=== PATIENT | female | born 1945 | race Caucasian/White ===

== ENCOUNTER → 2020-10-26 | Outpatient (CLI) | payer MEDICARE, OTHER ==
[2020-10-26 10:04] LABS: HEMATOCRIT 43.6 % (36.0-47.0); HEMOGLOBIN 13.6 g/dl (12.0-15.5); MEAN CORPUSCULAR HGB CONC 31.2 g/dl (32.0-36.5); PLATELET COUNT, AUTOMATED 313 10^3/uL (150-450); RED BLOOD COUNT 4.69 10^6/uL (4.00-5.40); WHITE BLOOD COUNT 6.2 10^3/uL (4.0-10.0)
[2020-10-26 10:17] LABS: INR 0.92; PROTHROMBIN TIME 12.5 SECONDS (12.5-14.3)
[2020-10-26 10:23] LABS: BLOOD UREA NITROGEN 26 MG/DL (7-18); CALCIUM LEVEL 9.5 MG/DL (8.8-10.2); CARBON DIOXIDE LEVEL 32 MEQ/L (21-32); CHLORIDE LEVEL 105 MEQ/L (98-107); GLOMERULAR FILTRATION RATE > 60.0 (>39); GLUCOSE, FASTING 103 MG/DL (70-100); POTASSIUM SERUM 4.7 MEQ/L (3.5-5.1); SODIUM LEVEL 140 MEQ/L (136-145)
== END ==
LOC: M LAB 09:25
DX: I73.9 Peripheral vascular disease, unspecified (principal)

== ENCOUNTER → 2020-10-26 | Outpatient (CLI) | payer MEDICARE, OTHER | LOC: M LABSMTC 09:00 | DX: Z20.822 Contact with and (suspected) exposure to COVID-19 (principal) ==

== ENCOUNTER → 2020-11-23 | Outpatient (CLI) | payer MEDICARE, OTHER ==
[2020-11-23 09:53] LABS: BASO # 0.1 10^3/uL (0.0-0.2); BASO % 0.7 % (0.0-1.0); EOS # 0.1 10^3/uL (0.0-0.5); EOS % 0.8 % (0.0-3.0); HEMATOCRIT 38.2 % (36.0-47.0); LYMPH # 2.2 10^3/uL (1.5-5.0); LYMPH % 24.2 % (24.0-44.0); MEAN CORPUSCULAR HEMOGLOBIN 29.7 pg (27.0-33.0); MEAN CORPUSCULAR HGB CONC 31.4 g/dl (32.0-36.5); MEAN CORPUSCULAR VOLUME 94.6 fl (80.0-96.0); MONO # 0.8 10^3/uL (0.0-0.8); MONO % 8.7 % (2.0-8.0); NEUTROPHILS # 5.9 10^3/uL (1.5-8.5); NEUTROPHILS % 65.3 % (36.0-66.0); PLATELET COUNT, AUTOMATED 432 10^3/uL (150-450); RED BLOOD COUNT 4.04 10^6/uL (4.00-5.40); WHITE BLOOD COUNT 9.1 10^3/uL (4.0-10.0)
[2020-11-23 10:03] LABS: INR 1.01; PROTHROMBIN TIME 13.5 SECONDS (12.5-14.3)
[2020-11-23 10:24] LABS: BLOOD UREA NITROGEN 23 MG/DL (7-18); CALCIUM LEVEL 9.6 MG/DL (8.8-10.2); CARBON DIOXIDE LEVEL 28 MEQ/L (21-32); CHLORIDE LEVEL 105 MEQ/L (98-107); CREATININE FOR GFR 0.82 MG/DL (0.55-1.30); GLOMERULAR FILTRATION RATE > 60.0 (>39); GLUCOSE, FASTING 101 MG/DL (70-100); POTASSIUM SERUM 4.7 MEQ/L (3.5-5.1); SODIUM LEVEL 138 MEQ/L (136-145)
== END ==
LOC: M LAB 08:57
PROVIDERS: ATTEND Surgery Vascular Surgery
DX: I73.9 Peripheral vascular disease, unspecified (principal); Z20.828 Contact with and (suspected) exposure to other viral communicable diseases; Z11.59 Encounter for screening for other viral diseases
CPT/HCPCS: 36415; 80048; 85025; 85610; U0003

== ENCOUNTER → 2020-11-23 | Outpatient (CLI) | payer MEDICARE, OTHER | LOC: M LABSMTC 08:04 | PROVIDERS: ATTEND Surgery Vascular Surgery | DX: Z20.828 Contact with and (suspected) exposure to other viral communicable diseases (principal); Z11.59 Encounter for screening for other viral diseases ==

== ENCOUNTER → 2020-12-21 | Outpatient (CLI) | payer MEDICARE, OTHER | LOC: M LABSMTC 08:13 | PROVIDERS: ATTEND Surgery Vascular Surgery | DX: Z01.812 Encounter for preprocedural laboratory examination (principal); Z20.822 Contact with and (suspected) exposure to COVID-19 ==

== ENCOUNTER → 2020-12-21 | Outpatient (CLI) | payer MEDICARE, OTHER ==
[2020-12-21 09:33] LABS: BASO # 0.1 10^3/uL (0.0-0.2); BASO % 0.9 % (0.0-1.0); EOS # 0.2 10^3/uL (0.0-0.5); EOS % 1.9 % (0.0-3.0); HEMATOCRIT 42.1 % (36.0-47.0); HEMOGLOBIN 13.1 g/dl (12.0-15.5); LYMPH # 2.7 10^3/uL (1.5-5.0); LYMPH % 29.4 % (24.0-44.0); MEAN CORPUSCULAR HEMOGLOBIN 29.4 pg (27.0-33.0); MEAN CORPUSCULAR HGB CONC 31.1 g/dl (32.0-36.5); MEAN CORPUSCULAR VOLUME 94.6 fl (80.0-96.0); MONO # 0.6 10^3/uL (0.0-0.8); MONO % 6.2 % (2.0-8.0); NEUTROPHILS # 5.6 10^3/uL (1.5-8.5); NEUTROPHILS % 61.3 % (36.0-66.0); PLATELET COUNT, AUTOMATED 429 10^3/uL (150-450); RED BLOOD COUNT 4.45 10^6/uL (4.00-5.40); WHITE BLOOD COUNT 9.1 10^3/uL (4.0-10.0)
[2020-12-21 09:53] LABS: INR 0.95; PROTHROMBIN TIME 12.9 SECONDS (12.5-14.3)
[2020-12-21 09:57] LABS: CALCIUM LEVEL 9.3 MG/DL (8.8-10.2); CREATININE FOR GFR 1.07 MG/DL (0.55-1.30); GLOMERULAR FILTRATION RATE 53.5 (>39); POTASSIUM SERUM 5.2 MEQ/L (3.5-5.1)
== END ==
LOC: M LAB 08:26
PROVIDERS: ATTEND Surgery Vascular Surgery
DX: Z01.812 Encounter for preprocedural laboratory examination (principal); I73.9 Peripheral vascular disease, unspecified; Z20.822 Contact with and (suspected) exposure to COVID-19
CPT/HCPCS: 36415; 80048; 85025; 85610; U0003

== ENCOUNTER 2021-01-03 12:36 | Emergency (ER) | payer MEDICARE, OTHER ==
[2021-01-03] MEDS ORDERED: LOSA25TA14 PO (12:52)
[2021-01-03] MEDS ORDERED: OMEP40CA97 PO (12:52)
[2021-01-03] MEDS ORDERED: FEXO60TA71 PO (12:52)
[2021-01-03] MEDS ORDERED: CELE1CAP4 PO (12:52)
[2021-01-03] MEDS ORDERED: PLAV1TAB2 PO (12:52)
[2021-01-03] MEDS ORDERED: URSO1TAB8 PO (12:52)
[2021-01-03] MEDS ORDERED: FOLTTAB9 PO (12:52)
[2021-01-03] MEDS ORDERED: CYCL-707 PO (12:52)
[2021-01-03] MEDS ORDERED: CYMB1CAP4 PO (12:52)
[2021-01-03] MEDS ORDERED: CREO3600 PO (12:52)
[2021-01-03] MEDS ORDERED: PROM50TA4 PO (12:52)
[2021-01-03] MEDS: MORPHINE 4 MG/ML 1ML VIAL/SYRINGE (J2270) IV PRN ×2 (13:54→17:18)
[2021-01-03 13:56] LABS: BASO # 0.1 10^3/uL (0.0-0.2); BASO % 0.6 % (0.0-1.0); EOS # 0.2 10^3/uL (0.0-0.5); HEMATOCRIT 38.4 % (36.0-47.0); LYMPH # 2.8 10^3/uL (1.5-5.0); MEAN CORPUSCULAR HEMOGLOBIN 29.3 pg (27.0-33.0); MEAN CORPUSCULAR HGB CONC 31.3 g/dl (32.0-36.5); MEAN CORPUSCULAR VOLUME 93.7 fl (80.0-96.0); MONO # 0.7 10^3/uL (0.0-0.8); MONO % 7.7 % (2.0-8.0); NEUTROPHILS % 57.6 % (36.0-66.0); PLATELET COUNT, AUTOMATED 328 10^3/uL (150-450); WHITE BLOOD COUNT 8.6 10^3/uL (4.0-10.0)
[2021-01-03] MEDS ORDERED: ISOVUE-370 76% 100ML VIAL As Ordered ONE (14:03)
[2021-01-03 14:06] LABS: INR 1.03; PROTHROMBIN TIME 13.7 SECONDS (12.5-14.3)
[2021-01-03 14:07] LABS: PARTIAL THROMBOPLASTIN TIME 31.8 SECONDS (24.2-38.5)
--- NOTE | 2021-01-03 15:14 | REP ---
INDICATION: left leg pain; s/p angiogram. COMPARISON: None. TECHNIQUE: Helical scanning is acquired following the intravenous injection of 100 mL of Isovue 370. 3 mm axial images re-formatted. Coronal and sagittal MPR and coronal MIP images are provided. In addition, 3D surface rendered color images are generated and viewed rotationally. FINDINGS: The lung bases are essentially clear on axial CT images. There are surgical clips at the GE junction. The gallbladder is not seen and may be surgically absent. The common bile duct measures 1.1 cm near the upper range of normal post cholecystectomy. There is extensive the sigmoid colon diverticulosis and descending colon diverticulosis without evidence of diverticulitis. Uterus is surgically absent. Vascular findings: Descending thoracic aorta is normal in caliber. There is mild, less than 50% narrowing of the celiac axis origin. The superior mesenteric artery origin shows calcific plaquing and less than 50% narrowing. There is 75% narrowing of the right renal artery origin and calcific plaquing is seen with 50% narrowing of the left main renal artery. The abdominal aorta is normal in caliber. The WON origin is patent but stenotic. The distal aorta is small in caliber 1.3 cm in AP dimension. Common iliac arteries are heavily calcified but patent. The iliac artery bifurcations are patent. Internal iliac arteries are bilaterally patent but calcific. The external iliac arteries are patent bilaterally. On the right there is a patent superficial femoral artery to popliteal artery stent. The popliteal artery distal to the stent is patent. There is calcific plaquing and peroneal and anterior tibial arteries are patent to the distal calf. Neither artery can be seen opacified across the ankle. On the left, there is an arterial web-like filling defect extending from the common femoral artery into the superficial femoral artery consistent with a dissection flap. This is seen in the distal superficial femoral artery and can be traced basically to the popliteal artery. The tibial-peroneal trunk and 3 calf vessels are opacified to the distal calf on the left. At the popliteal fossa, there is soft tissue density extending posteriorly question hematoma. profundal femoral is patent. No neymar occlusion is seen. IMPRESSION: 1. There is evidence of dissection flap within the arterial lumen from the left common femoral artery to the left popliteal artery. Question hematoma in the left popliteal soft tissues. No large vessel occlusion is seen. 2. Patent right superficial femoral artery to popliteal artery stent. 3. Relatively small caliber aorta and iliacs. Heavily calcified. 4. Right renal artery high-grade stenosis. 5. CBD borderline 1.1 cm. 6. Extensive left colonic diverticulosis. <Electronically signed by Jamin Bass > 01/03/21 [id number]
--- NOTE | 2021-01-03 15:37 | ECGEPIP ---
[facility] - ED Test Date: 2021-01-03 Pat Name: RAKESH MILLER Department: Room: - Gender: Female [place]ater: RADHA : 1945 Requested By: STELLA PALAFOX Order Number: [id number] Reading MD: Laila Hunt Measurements Intervals [place] Rate: 84 P: 73 IL: 150 QRS: 27 QRSD: 98 T: 67 QT: 364 QTc: 430 Interpretive Statements Normal sinus rhythm No prior Electronically Signed on 01-03-2021 15:37:03 EDT by Laila Hunt
[2021-01-03] MEDS ORDERED: DOXYCYCLINE HYCLATE 100MG TABLET PO ONE (16:05)
[2021-01-03] MEDS ORDERED: DOXY100C37 PO (16:21)
[2021-01-03] MEDS ORDERED: HYDR-3713 PO (16:21)
[2021-01-03 17:59] VITALS: BP 178/90
--- NOTE | 2021-01-04 07:46 | ED PDOC ---
Post-Departure Follow-Up dr garcia faxed formal report of cta abd for fu Isabela Boyre MD January 04, 2021 07:46
== END 2021-01-03 18:03 | disposition home or self-care (01) ==
LOC: M ED 12:36
DX: G89.18 Other acute postprocedural pain (principal); T81.40XA Infection following a procedure, unspecified, initial encounter; Y92.9 Unspecified place or not applicable; Y93.9 Activity, unspecified; I10 Essential (primary) hypertension; M79.7 Fibromyalgia; M35.00 Sjogren syndrome, unspecified; Z95.820 Peripheral vascular angioplasty status with implants and grafts; I70.1 Atherosclerosis of renal artery; K57.30 Diverticulosis of large intestine without perforation or abscess without bleeding; K83.9 Disease of biliary tract, unspecified; Z88.0 Allergy status to penicillin; Z88.2 Allergy status to sulfonamides; Z88.8 Allergy status to other drugs, medicaments and biological substances; Z88.5 Allergy status to narcotic agent
CPT/HCPCS: 36415; 75635; 80047; 85025; 85610; 85730; 93005; 93041; 94760; 96374; 96376; 99285; J2270; Q9967

== ENCOUNTER → 2021-01-11 | Outpatient (CLI) | payer MEDICARE, OTHER ==
[~2021-01-11] MED LIST: CELE1CAP4 PO; CREO3600 PO; CYCL-707 PO; CYMB1CAP4 PO; DOXY100C37 PO; FEXO60TA71 PO; FOLTTAB9 PO; HYDR-3713 PO; LOSA25TA14 PO; OMEP40CA97 PO; PLAV1TAB2 PO; PROM50TA4 PO; URSO1TAB8 PO
[2021-01-11 10:27] LABS: BASO # 0.1 10^3/uL (0.0-0.2); BASO % 0.8 % (0.0-1.0); EOS # 0.3 10^3/uL (0.0-0.5); EOS % 4.1 % (0.0-3.0); HEMOGLOBIN 12.4 g/dl (12.0-15.5); LYMPH % 28.2 % (24.0-44.0); MEAN CORPUSCULAR HEMOGLOBIN 29.3 pg (27.0-33.0); MEAN CORPUSCULAR VOLUME 94.6 fl (80.0-96.0); MONO # 0.6 10^3/uL (0.0-0.8); NEUTROPHILS # 4.1 10^3/uL (1.5-8.5); NEUTROPHILS % 57.6 % (36.0-66.0); PLATELET COUNT, AUTOMATED 434 10^3/uL (150-450); RED BLOOD COUNT 4.23 10^6/uL (4.00-5.40); WHITE BLOOD COUNT 7.1 10^3/uL (4.0-10.0)
[2021-01-11 10:37] LABS: INR 1.03; PROTHROMBIN TIME 13.7 SECONDS (12.5-14.3)
[2021-01-11 10:48] LABS: CALCIUM LEVEL 9.4 MG/DL (8.8-10.2); CREATININE FOR GFR 0.98 MG/DL (0.55-1.30); GLOMERULAR FILTRATION RATE 59.2 (>39); POTASSIUM SERUM 4.9 MEQ/L (3.5-5.1)
== END ==
LOC: M LAB 09:45
PROVIDERS: ATTEND Surgery Vascular Surgery
DX: Z01.812 Encounter for preprocedural laboratory examination (principal); I73.9 Peripheral vascular disease, unspecified; Z20.822 Contact with and (suspected) exposure to COVID-19; Z79.899 Other long term (current) drug therapy
CPT/HCPCS: 36415; 80048; 85025; 85610; U0003

== ENCOUNTER 2021-01-21 20:06 | Emergency (ER) | payer MEDICARE, OTHER ==
[~2021-01-21] VITALS: Ht 167.6 cm; Wt 67.5 kg
[2021-01-21] MEDS ORDERED: ISOVUE-370 76% 100ML VIAL As Ordered ONE (21:27)
--- NOTE | 2021-01-22 00:13 | REPVR ---
PROCEDURE INFORMATION: Exam: CTA Right Lower Extremity With Contrast Exam date and time: 01/21/2021 10:42 PM Age: 75 years old Clinical indication: Left leg angiogram, bulge at insertion site, evaluate for pseudoaneurysm. TECHNIQUE: Imaging protocol: CTA images of the Right lower extremity with intravenous contrast using CT angiography protocol. 3D rendering (Not supervised by radiologist): MIP and/or 3D reconstructed images were created by the technologist. Radiation optimization: All CT scans at this facility use at least one of these dose optimization techniques: automated exposure control; mA and/or kV adjustment per patient size (includes targeted exams where dose is matched to clinical indication); or iterative reconstruction. Contrast material: ISOVUE 370; Contrast volume: 100 ml; Contrast route: INTRAVENOUS (IV); COMPARISON: No relevant prior studies available. FINDINGS: Right iliac arteries: The right common iliac artery, right external iliac artery, and right internal iliac artery are intact and patent. Right femoral/popliteal arteries: There is moderate (approximately 50% stenosis) of the right common femoral artery that is similar compared to the prior CTA on 01/03/2021. There is a patent endovascular stent extending from the right proximal superficial femoral artery to the right above knee popliteal artery. The right profunda femoris artery is patent. Right infrapopliteal arteries: The right tibioperoneal trunk, anterior tibial artery, and peroneal artery are patent. There is an occlusion of the right posterior tibial artery beginning in the proximal calf without distal reconstitution, which can also be seen in the prior CTA on 01/03/2021. The right dorsalis pedis artery is patent. Limited bowel: There is severe sigmoid diverticulosis without evidence for sigmoid diverticulitis. The bowel was not fully imaged. Appendix: Normal. There is no evidence for appendicitis. Bladder: The partially distended urinary bladder is unremarkable. No stones or masses are seen in the bladder. Reproductive: There has been a hysterectomy. Bones/joints: There is no fracture or dislocation of the right lower extremity. There is mild osteoarthritis of the right hip and right knee. There are degenerative changes in the lumbar spine. There is a grade 1 anterolisthesis of L4 on L5 secondary to severe osteoarthritis of the L4-L5 facet joints. Lymph nodes: No enlarged lymph nodes. Soft tissues: Unremarkable. No soft tissue fluid collection. IMPRESSION: 1. Moderate (approximately 50% stenosis of the right common femoral artery that is similar in appearance compared to the prior CTA on 01/03/2021. 2. 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 3. Severe sigmoid diverticulosis. PROCEDURE INFORMATION: Exam: CTA Left Lower Extremity With Contrast Exam date and time: 01/21/2021 10:42 PM Age: 75 years old Clinical indication: Left leg angiogram, bulge at insertion site, eval for a pseudoaneurysm. TECHNIQUE: Imaging protocol: Computed tomographic angiography of the Left lower extremity with intravenous contrast. 3D rendering (Not supervised by radiologist): MIP and/or 3D reconstructed images were created by the technologist. Radiation optimization: All CT scans at this facility use at least one of these dose optimization techniques: automated exposure control; mA and/or kV adjustment per patient size (includes targeted exams where dose is matched to clinical indication); or iterative reconstruction. Contrast material: ISOVUE 370; Contrast volume: 100 ml; Contrast route: INTRAVENOUS (IV); COMPARISON: CT ANGIO ABDOMINAL ARTERIES 01/03/2021 2:03:51 PM FINDINGS: Left iliac arteries: The left common iliac artery, left external iliac artery, and left internal iliac artery are intact and patent. 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 The left profunda femoris artery and left popliteal artery are patent. No pseudoaneurysm or arteriovenous fistula is noted. Left infrapopliteal arteries: The left tibioperoneal trunk, anterior tibial artery, dorsalis pedis artery, and peroneal artery are patent. There is an occlusion of the left posterior tibial artery beginning at the level of the distal third of the left calf without distal reconstitution, which is similar in appearance compared to the prior CTA on 01/03/2021. Limited bowel: There is severe sigmoid diverticulosis without evidence for sigmoid diverticulitis. The bowel was not fully imaged. Appendix: Normal. There is no evidence for appendicitis. Bladder: The partially distended urinary bladder is unremarkable. No stones or masses are seen in the bladder. Reproductive: There has been a hysterectomy. Lymph nodes: No enlarged lymph nodes. Bones/joints: There is no fracture, dislocation, or bony destructive changes involving the left lower extremity. There is mild osteoarthritis of the left hip and left knee. Soft tissues: There is soft tissue swelling and edema in the left groin. No drainable soft tissue fluid collection is noted. IMPRESSION: 1. Soft tissue swelling and edema in the left groin, but no fluid collection, pseudoaneurysm, or arteriovenous fistula. 2. 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 3. 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 4. Severe sigmoid diverticulosis. Electronically signed by: Grant Crawford On 01/22/2021 00:12:56 AM
[2021-01-22 01:30] VITALS: BP 137/62
== END 2021-01-22 01:45 | disposition home or self-care (01) ==
LOC: M ED 20:06
DX: S80.02XA Contusion of left knee, initial encounter (principal); X58.XXXA Exposure to other specified factors, initial encounter; Y92.9 Unspecified place or not applicable; Y93.9 Activity, unspecified; Y99.9 Unspecified external cause status; K57.30 Diverticulosis of large intestine without perforation or abscess without bleeding; Z79.899 Other long term (current) drug therapy; Z88.0 Allergy status to penicillin; Z88.2 Allergy status to sulfonamides; Z88.5 Allergy status to narcotic agent; Z88.8 Allergy status to other drugs, medicaments and biological substances
CPT/HCPCS: 73706; 80047; 99285; Q9967

== ENCOUNTER → 2021-10-20 | Outpatient (CLI) | payer MEDICARE ==
[~2021-10-20] MED LIST changes: +DOXY-443 PO; -DOXY100C37 PO; +LOSA25TA13 PO; -LOSA25TA14 PO; +OMEP40CA4 PO; -OMEP40CA97 PO
== END ==
LOC: M WHC 09:46
PROVIDERS: ATTEND Internal Medicine
DX: M81.0 Age-related osteoporosis without current pathological fracture (principal)

== ENCOUNTER → 2021-11-06 | Outpatient (REF) | payer MEDICARE ==
[~2021-11-06] MED LIST changes: -FEXO60TA71 PO; +FEXO60TA98 PO
[2021-11-06 16:41] LABS: INR 0.9; PARTIAL THROMBOPLASTIN TIME 32.5 SECONDS (25.9-37.0); PROTHROMBIN TIME 12.5 SECONDS (12.7-14.5)
== END ==
LOC: M LAB REF 16:09
PROVIDERS: ATTEND Internal Medicine
DX: K74.3 Primary biliary cirrhosis (principal)

== ENCOUNTER → 2021-12-02 | Outpatient (CLI) | payer MEDICARE ==
[2021-12-02 13:42] LABS: HEMATOCRIT 39.8 % (36.0-47.0); MEAN CORPUSCULAR HEMOGLOBIN 30.3 pg (27.0-33.0); MEAN CORPUSCULAR HGB CONC 32.7 g/dl (32.0-36.5); MEAN CORPUSCULAR VOLUME 92.8 fl (80.0-96.0); PLATELET COUNT, AUTOMATED 328 10^3/uL (150-450); RED BLOOD COUNT 4.29 10^6/uL (4.00-5.40); WHITE BLOOD COUNT 7.5 10^3/uL (4.0-10.0)
[2021-12-02 13:53] LABS: INR 0.95; PARTIAL THROMBOPLASTIN TIME 34.3 SECONDS (25.9-37.0); PROTHROMBIN TIME 13.1 SECONDS (12.7-14.5)
== END ==
LOC: M PLALAB 11:02
PROVIDERS: ATTEND Internal Medicine Hematology
DX: D69.9 Hemorrhagic condition, unspecified (principal)

== ENCOUNTER → 2022-02-05 | Outpatient (REF) | payer MEDICARE ==
[2022-02-05 13:07] LABS: FERRITIN 38 NG/ML (8-252)
[2022-02-05 13:13] LABS: VITAMIN B12 LEVEL 899 PG/ML (247-911)
== END ==
LOC: M LAB REF 11:49
PROVIDERS: ATTEND Internal Medicine
DX: D50.9 Iron deficiency anemia, unspecified (principal); E53.8 Deficiency of other specified B group vitamins

== ENCOUNTER → 2022-09-29 | Outpatient (REF) | payer MEDICARE ==
[~2022-09-29] MED LIST changes: +CLOP75TA99 PO; -PLAV1TAB2 PO
== END ==
LOC: M LAB REF 12:33
PROVIDERS: ATTEND Internal Medicine
DX: N76.0 Acute vaginitis (principal)

== ENCOUNTER → 2022-10-19 | Outpatient (CLI) | payer MEDICARE ==
[~2022-10-19] MED LIST changes: +ASPI81TA26 PO; +THERTAB52 PO; +ZINC100T3 PO
== END ==
LOC: M LABSMTC 09:50
PROVIDERS: ATTEND Anesthesiology
DX: Z01.812 Encounter for preprocedural laboratory examination (principal); Z11.52 Encounter for screening for COVID-19

== ENCOUNTER 2022-10-20 08:54 | Day surgery (SDC) | payer MEDICARE ==
[~2022-10-20] VITALS: Ht 167.6 cm; Wt 71.7 kg
[2022-10-20] MEDS ORDERED: LR 1,000 ML IV SCH ×2 (09:40→12:25)
[2022-10-20] MEDS ORDERED: SUGAMMADEX SODIUM 500 MG/5 ML VIAL (BRIDION) As Ordered ONE (10:44)
[2022-10-20] MEDS ORDERED: ROCURONIUM BROMIDE 50MG/5ML VIAL As Ordered ONE (10:44)
[2022-10-20] MEDS ORDERED: propofoL 200 MG/20 ML VIAL As Ordered ONE (10:44)
[2022-10-20] MEDS ORDERED: ONDANSETRON 4MG 2ML VIAL As Ordered ONE (10:44)
[2022-10-20] MEDS ORDERED: LIDOCAINE 2% 100MG/5ML SDV (FOR ANES.) As Ordered ONE (10:44)
[2022-10-20] MEDS ORDERED: fentaNYL 100 MCG/2 ML INJECTION As Ordered ONE (11:03)
[2022-10-20] MEDS ORDERED: SILVER NITRATE APPLICATOR (1 = QTY 10) As Ordered ONE (11:03)
[2022-10-20] MEDS ORDERED: MUPIROCIN 2% OINT 22 GM TUBE As Ordered ONE (11:04)
[2022-10-20] MEDS ORDERED: EPINEPHrine 1MG/ML INJ 30ML MD-VIAL As Ordered ONE (11:04)
[2022-10-20] MEDS ORDERED: BACITRACIN OINTMENT 30GM TUBE As Ordered ONE (11:05)
[2022-10-20] MEDS ORDERED: ACETAMINOPHEN 1000MG 100ML IV BAG As Ordered ONE (11:26)
[2022-10-20] MEDS ORDERED: PHENYLephrine 500MCG 5ML (100MCG/ML) SYRINGE As Ordered ONE (11:33)
[2022-10-20] MEDS ORDERED: ePHEDrine SULFATE 25 MG/5 ML(5MG/ML) SYRINGE As Ordered ONE (11:42)
[2022-10-20] MEDS ORDERED: ONDANSETRON 4MG 2ML VIAL IV PRN (12:25)
[2022-10-20] MEDS ORDERED: HYDROMORPHONE HCL 0.5 MG/ 0.5 ML SYRINGE IV PRN (12:25)
[2022-10-20] MEDS ORDERED: oxyCODONE 5MG TAB PO PRN (12:25)
[2022-10-20] MEDS ORDERED: fentaNYL 100 MCG/2 ML INJECTION IV PRN (12:25)
[2022-10-20 13:55] VITALS: BP 145/65
== END 2022-10-20 14:10 | disposition home or self-care (01) ==
LOC: M SDC 08:54
PROVIDERS: ATTEND Otolaryngology
DX: R04.0 Epistaxis (principal); I12.9 Hypertensive chronic kidney disease with stage 1 through stage 4 chronic kidney disease, or unspecified chronic kidney disease; E78.5 Hyperlipidemia, unspecified; K57.92 Diverticulitis of intestine, part unspecified, without perforation or abscess without bleeding; K21.9 Gastro-esophageal reflux disease without esophagitis; J45.909 Unspecified asthma, uncomplicated; G47.33 Obstructive sleep apnea (adult) (pediatric); N18.30 Chronic kidney disease, stage 3 unspecified; M79.7 Fibromyalgia; Z79.899 Other long term (current) drug therapy; Z79.82 Long term (current) use of aspirin; Z88.0 Allergy status to penicillin; Z88.5 Allergy status to narcotic agent; Z88.2 Allergy status to sulfonamides; Z88.8 Allergy status to other drugs, medicaments and biological substances
CPT/HCPCS: 31238; J1100; J2370; J2405; J3010

== ENCOUNTER 2022-10-22 19:11 | Emergency (ER) | payer MEDICARE ==
[~2022-10-22] VITALS: Ht 167.6 cm; Wt 70.5 kg
[2022-10-22 19:12] VITALS: BP 150/69
== END 2022-10-22 22:40 | disposition left against medical advice (07) ==
LOC: M ED 19:11
DX: Z53.21 Procedure and treatment not carried out due to patient leaving prior to being seen by health care provider (principal)

== ENCOUNTER → 2023-02-12 | Outpatient (REF) | payer MEDICARE | LOC: M LAB REF 16:03 | PROVIDERS: ATTEND Internal Medicine | DX: D64.9 Anemia, unspecified (principal) ==